=== PATIENT | female | born 1950 | race Caucasian/White ===

== ENCOUNTER 2019-03-31 18:36 | Emergency (ER) | payer MEDICARE, MEDICAID ==
[2019-03-31] MEDS ORDERED: oxyCODONE/Acetamin 5/325 MG* TAB PO ONE (19:29)
[2019-03-31] MEDS ORDERED: Acetaminophen TAB* 325 MG PO ONE (19:29)
--- NOTE | 2019-03-31 19:38 | ED ---
Lower Extremity - HPI Summary HPI Summary: Patient is a 68 y/o F w/ Hx of MS who presents to [facility] with complaints of right leg pain. She states that she has had chronic leg pain for the past few years and relates this chronic pain to her MS. Patient reports that she had an exacerbation of her pain three days ago. Pain is reported to radiate from her right hip down her leg to her foot. Patient reported that she has been taking muscle relaxers and ibuprofen without relief in Sx. She denies any recent injuries. She notes that when she has experienced similar previous episodes, her Sx are treated with stronger pain medications. Patient claims that she has an appointment with her PCP in the next two days. She additionally notes that she has had chronic incontinence for the past few years. Pain is reported to be at her left leg intermittently as well. Home medications and allergies are reviewed. - History of Current Complaint Chief Complaint: EDExtremityLower Stated Complaint: RT LEG PAIN PER EMS Time Seen by Provider: 03/31/19 19:18 Hx Obtained From: Patient Mechanism Of Injury: Other - no EDVAN reported Onset of Pain: Days, Prior to Arrival Onset/Duration: Still Present Pain Intensity: 3 Pain Scale Used: 0-10 Numeric Timing: Constant, Intermittent - at left leg, Lasting Days Location: Is Discrete @ - right leg Associated Signs And Symptoms: Positive: Negative - Allergies/Home Medications Allergies/Adverse Reactions: Allergies Allergy/AdvReac Type Severity Reaction Status Date / Time latex Allergy Rash Verified 03/31/19 18:45 nickel Allergy Rash Verified 03/31/19 18:45 Sulfa (Sulfonamide Allergy Hives Verified 03/31/19 18:45 Antibiotics) ENVIRONMENTAL Allergy Sneezing Uncoded 02/23/19 15:47 Home Medications: Home Medications Escitalopram * [Lexapro *] 20 mg PO DAILY 03/31/19 [History Confirmed 03/31/19] Teriflunomide (NF) [Aubagio (NF)] 14 mg PO DAILY 03/31/19 [History Confirmed ] amLODIPine TAB* [Norvasc 5 mg TAB*] 5 mg PO DAILY 03/31/19 [History Confirmed ] tiZANidine TAB* [Zanaflex TAB*] 2 mg PO TID 03/31/19 [History Confirmed 03/31/19 ] PMH/Surg Hx/FS Hx/Imm Hx Endocrine/Hematology History: Denies: Hx Diabetes Cardiovascular History: Denies: Hx Pacemaker/ICD History: Denies: Hx Renal Disease Sensory History: Denies: Hx Hearing Aid Psychiatric History: Denies: Hx Panic Disorder - Surgical History Surgery Procedure, Year, and Place: HYSTERECTOMY. 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 LASER SURGERY FOR CATARACTS Infectious Disease History: No Infectious Disease History: Denies: Traveled Outside the [place] in Last 30 Days - Family History Known Family History: Negative: Seizure Disorder - Social History Alcohol Use: Rare Substance Use Type: Reports: None Smoking Status (MU): Light Every Day Tobacco Smoker Review of Systems Positive: incontinence - chronic Musculoskeletal: Other - positive - worsening of chronic right leg pain, intermittent pain at left leg; negative - discrete injury All Other Systems Reviewed And Are Negative: Yes Physical Exam - Summary Physical Exam Summary: Constitutional: Well-developed, Well-nourished, Alert. (-) Distressed Skin: Atraumatic, Warm, Dry, no breaks, bleeding, or ecchymosis. HENT: Normocephalic; Atraumatic Eyes: Conjunctiva normal Neck: Musculoskeletal ROM normal neck. (-) JVD, (-) Stridor, (-) Tracheal deviation Cardio: Rhythm regular, rate normal, Heart sounds normal; Intact distal pulses; The pedal pulses are 2+ and symmetric. Radial pulses are 2+ and symmetric. Good pulses and good capillary refill. Patient is well perfused. Pulmonary/Chest wall: Effort normal. (-) Respiratory distress, (-) Wheezes, (-) Rales Abd: Soft, (-) tenderness, (-) Distension, (-) Guarding, (-) Rebound Musculoskeletal: (-) Edema (-) deformity to hip (-) bony tenderness (-) calf tenderness; Calves are soft, supple, and symmetrical. Patient feels discomfort is localized to anterior aspect of the tibia. Neuro: Alert, Oriented x3 Psych: Mood and affect Normal Triage Information Reviewed: Yes Vital Signs On Initial Exam: Initial Vitals Pulse Pulse Ox 85 95 03/31/19 18:40 03/31/19 18:40 Vital Signs Reviewed: Yes Procedures - Sedation Patient Received Moderate/Deep Sedation with Procedure: No Diagnostics - Vital Signs Vital Signs Temp Pulse Resp BP Pulse Ox 03/31/19 18:42 99.6 F 80 18 145/90 94 03/31/19 18:41 82 145/90 96 03/31/19 18:40 85 95 - Laboratory Lab Statement: Any lab studies that have been ordered have been reviewed, and results considered in the medical decision making process. Re-Evaluation - Re-Evaluation First Eval Re-Evaluation Time: 21:46 Change: Improved Comment: Sx are improved after medications, patient is discharged to home. Lower Extremity Course/Dx - Course Course Of Treatment: Patient is a 68 y/o F w/ Hx of MS who presents to [facility] with complaints of right leg pain. She states that she has had chronic leg pain for the past few years and relates this chronic pain to her MS. Patient reports that she had an exacerbation of her pain three days ago. Pain is reported to radiate from her right hip down her leg to her foot. She denies any recent injuries. She notes that when she has experienced similar previous episodes, her Sx are treated with strong pain medications. Skin: Atraumatic, Warm, Dry, no breaks, bleeding, or ecchymosis. Musculoskeletal: (-) Edema (-) deformity to hip (-) bony tenderness (-) calf tenderness; Calves are soft, supple, and symmetrical. Patient feels discomfort is localized to anterior aspect of the tibia. Good pulses and good capillary refill. Patient is well perfused. During ED course, patient received 2 tabs of 5/325 Percocet and 325 mg PO Tylenol. Patient had improvement of pain after medications, she was discharged to home. - Diagnoses Provider Diagnoses: Chronic pain of right lower extremity Discharge ED - Sign-Out/Discharge Documenting (check all that apply): Patient Departure - discharge - Discharge Plan Condition: Stable Disposition: HOME Patient Education Materials: Arthralgia (ED) Referrals: Amira Juarez MD [Primary Care Provider] - - Billing Disposition and Condition Condition: STABLE Disposition: Home - Attestation Statements Document Initiated by Ashanti: Yes Documenting Scribe: EMILY ROQUE Provider For Whom Ashanti is Documenting (Include Credential): GERARD ART MD Scribe Attestation: EMILY Barrow scribed for GERARD ART MD on 04/01/19 at 0716. Scribe Documentation Reviewed: Yes Provider Attestation: The documentation as recorded by the EMILY gomez accurately reflects the service I personally performed and the decisions made by me, GERARD ART MD Status of Scribe Document: Viewed
--- OUTSIDE RECORDS SUMMARY | 2019-03-31 19:50 | XMS REPORT | Continuity of Care Document ---
:1950 External Reference #:[id number] Author Name Chauncey Bhandari M.D. 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 Onset: 02/19/2019 Social History Type Date Description Comments Sex Unknown ETOH Use Rarely consumes alcohol Tobacco Use Start: Unknown Light tobacco smoker (10 or fewer cigarettes/day) Recreational Drug Use Denies Drug Use Smoking Status Reviewed: 02/19/19 Light tobacco smoker (10 or fewer cigarettes/day) Exercise Type/Frequency Exercises rarely Allergies, Adverse Reactions, Alerts Active Allergies Reaction Severity Comments Date Sulfa 02/19/2019 Nickel 02/19/2019 Medications Active Medications SIG Qnty Indications Ordering Provider Date Tizanidine HCL Take 1 by mouth 90tabs G35 Chauncey Bhandari, 02/19/2019 2mg every 8 hours M.D. Tablets as needed Aubagio one tab po Unknown 14mg Tablets daily Cephalexin 1 tab po 3x Unknown 500mg daily Capsules Escitalopram Oxalate 1 by mouth Unknown every day 20mg Tablets Rosuvastatin Calcium take 1 tablet Unknown by mouth every 10mg Tablets evening Amlodipine Besylate 1 by mouth Unknown 5mg every day Tablets Ibu as needed Unknown 800mg Tablets Immunizations Description No Information Available Vital Signs Date Vital Result Comment 02/19/2019 1:54pm Height 65 inches 5'5" Weight 169.00 lb Heart Rate 82 /min BP Systolic 130 mmHg BP Diastolic 98 mmHg BMI (Body Mass Index) 28.1 kg/m2 Results Description No Information Available Procedures Description No Information Available Medical Devices Description No Information Available Encounters Type Date Location Provider Dx Diagnosis Office Visit 02/19/2019 [facility] Chauncey Bhandari G35 Multiple 2:00p [facility] [place] sclerosis Assessments Date Code Description Provider 02/19/2019 G35 Multiple sclerosis Chauncey Bhandari M.D. Plan of Treatment Future Appointment(s):04/02/2019 10:30 am - Fito Morris N.P. at [facility]02/19[facility]2019 - Chauncey Bhandari M.D.G35 Multiple sclerosisNew Medication:Tizanidine HCL 2 mg - Take 1 by mouth every 8 hours as neededNew Xrays:MRI Cervical Spine W/Wo, Ordered: 02/19/19MRI Brain W/Wo, Ordered: 02/19/19Follow up:Follow up in 6 weeks with Tera SANCHEZ for MRI films and reports from [facility] Functional Status Description No Information Available Mental Status Description No Information Available Referrals Description No Information Available
[2019-03-31 22:19] VITALS: BP 135/68
== END 2019-03-31 21:51 | disposition home or self-care (01) ==
LOC: ED 18:36
DX: M79.604 Pain in right leg (principal); G89.29 Other chronic pain; F17.200 Nicotine dependence, unspecified, uncomplicated; Z90.710 Acquired absence of both cervix and uterus; Z79.899 Other long term (current) drug therapy; Z88.2 Allergy status to sulfonamides; Z91.040 Latex allergy status
CPT/HCPCS: 99282; A9270-GY

== ENCOUNTER 2019-08-09 10:29 | Observation (INO) | payer MEDICARE, MEDICAID ==
--- NOTE | 2019-08-09 10:47 | ED ---
HPI Chest Pain - HPI Summary HPI Summary: Patient is a 68 y/o F presenting to the ED via EMS for a chief complaint of midsternal chest pain that began 4 days ago and worsened on 08/09/19. The chest pain is rated as an 8/10 in severity at initial onset, but has since resolved after receiving aspirin and NTG from EMS. The chest pain is described as a pressure sensation. The chest pain worsens with movement and eating. The chest pain improves with rest. She took TUMS and apple cider vinegar without relief of her chest pain. The patient initially believed she had indigestion. On the morning of 08/09/19, patient had an episode of nausea and vomiting that has since resolved. Patient denies diaphoresis, lightheadedness, or shortness of breath. PMHx is significant for HTN and multiple sclerosis for which she follows up with Dr. Chauncey Bhandari. She last saw Dr. Chauncey Bhandari one week ago for a steroid infusion. No significant FMHx is reported. Patient notes a history of taking medications for HLD, but none at the present time. She takes tizanidine, Aubagio, and Lexapro. She is a former smoker. - History of Current Complaint Time Seen by Provider: 08/09/19 10:34 Hx Obtained From: Patient Onset/Duration: Atraumatic, Still Present Timing: Intermittent Initial Severity: Severe Current Severity: None Pain Intensity: 8 Pain Scale Used: 0-10 Numeric Chest Pain Location: Mid Sternal Chest Pain Radiates: No Character: Pressure/Squeezing Aggravating Factor(s): Movement, Other: - Eating Alleviating Factor(s): Rest, NTG 123, OTC Meds - Aspirin Associated Signs and Symptoms: Positive: Chest Pain - Midsternal, Nausea - Resolved, Vomiting - Resolved. Negative: Shortness of Breath, Lightheadedness, Diaphoresis - Allergy/Home Medications Allergies/Adverse Reactions: Allergies Allergy/AdvReac Type Severity Reaction Status Date / Time acetaminophen [From Tylenol] Allergy GI Upset Verified 04/15/19 10:33 latex Allergy Rash Verified 04/15/19 10:33 nickel Allergy Rash Verified 04/15/19 10:33 Sulfa (Sulfonamide Allergy Hives Verified 04/15/19 10:33 Antibiotics) ENVIRONMENTAL Allergy Sneezing Uncoded 11/14/19 10:33 Home Medications: Home Medications Escitalopram * [Lexapro *] 20 mg PO DAILY 03/31/19 [History Confirmed 08/09/19] Teriflunomide (NF) [Aubagio (NF)] 14 mg PO DAILY 03/31/19 [History Confirmed 02/19] amLODIPine TAB* [Norvasc 5 mg TAB*] 5 mg PO DAILY 03/31/19 [History Confirmed ] tiZANidine TAB* [Zanaflex TAB*] 6 mg PO TID PRN 03/31/19 [History Confirmed 02/19] Diazepam TAB(*) [Valium TAB(*)] 5 mg PO ONCE MDD 2 tabs 08/09/19 [History Confirmed 08/09/19] Ibuprofen TAB* [Motrin TAB* 800 MG] 800 mg PO .Q6-8 HRS PRN 08/09/19 [History Confirmed 08/09/19] Oxycodone HCl [Roxicodone] 5 mg PO Q4H PRN 08/09/19 [History Confirmed 08/09/19] Rosuvastatin (NF) [Crestor (NF)] 10 mg PO DAILY 08/09/19 [History Confirmed 02/19] PMH/Surg Hx/FS Hx/Imm Hx Previously Healthy: Yes Endocrine/Hematology History: Denies: Hx Diabetes Cardiovascular History: Reports: Hx Hypercholesterolemia - No meds, Hx Hypertension Denies: Hx Pacemaker/ICD History: Denies: Hx Renal Disease Sensory History: Denies: Hx Legally Blind, Hx Deafness, Hx Hearing Aid Opthamlomology History: Denies: Hx Legally Blind EENT History: Denies: Hx Deafness Neurological History: Reports: Other Neuro Impairments/Disorders - Multiple sclerosis Psychiatric History: Denies: Hx Panic Disorder - Surgical History Surgical History: Yes Surgery Procedure, Year, and Place: HYSTERECTOMY. 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 LASER SURGERY FOR CATARACTS Infectious Disease History: No Infectious Disease History: Denies: Traveled Outside the US in Last 30 Days - Family History Known Family History: Negative: Seizure Disorder - Social History Occupation: Retired Alcohol Use: None Hx Substance Use: No Substance Use Type: Reports: None Hx Tobacco Use: Yes Smoking Status (MU): Former Smoker Type: Cigarettes Have You Smoked in the Last Year: Yes Review of Systems Negative: Skin Diaphoresis Positive: Chest Pain - Midsternal Negative: Shortness Of Breath Positive: Vomiting - Resolved, Nausea - Resolved Neurological/Mental Status: Other - Negative lightheadedness All Other Systems Reviewed And Are Negative: Yes Physical Exam - Summary Physical Exam Summary: Appearance: The patient is well-nourished in no acute distress and in no acute pain. Skin: The skin is warm and dry, and skin color reflects adequate perfusion. HEENT: The head is normocephalic and atraumatic. The pupils are equal and reactive. The conjunctivae are clear and without drainage. Nares are patent and without drainage. Mouth reveals moist mucous membranes, and the throat is without erythema and exudate. The external ears are intact. The ear canals are patent and without drainage. The tympanic membranes are intact. Neck: The neck is supple with full range of motion and non-tender. There are no carotid bruits. There is no neck vein distension. Respiratory: Chest is non-tender. Lungs are clear to auscultation and breath sounds are symmetrical and equal. Cardiovascular: Heart is regular rate and rhythm. There is no murmur or rub auscultated. There is no peripheral edema and pulses are symmetrical and equal. Abdomen: The abdomen is soft and non-tender. There are normal bowel sounds heard in all four quadrants and there is no organomegaly palpated. Musculoskeletal: There is no back tenderness noted. Extremities are non-tender with full range of motion. There is good capillary refill. There is no peripheral edema or calf tenderness elicited. Neurological: Patient is alert and oriented to person, place and time. The patient has symmetrical motor strength in all four extremities. Cranial nerves are grossly intact. Deep tendon reflexes are symmetrical and equal in all four extremities. Psychiatric: The patient has an appropriate affect and does not exhibit any anxiety or depression. Triage Information Reviewed: Yes Vital Signs Reviewed: Yes Procedures - Sedation Patient Received Moderate/Deep Sedation with Procedure: No Diagnostics - Laboratory Result Diagrams: 08/09/19 10:43 08/09/19 10:43 Lab Statement: Any lab studies that have been ordered have been reviewed, and results considered in the medical decision making process. - EKG 10:32 Cardiac Rate: NL - 90 BPM EKG Rhythm: Sinus Rhythm ST Segment: Normal Ectopy: None Summary of EKG Findings: EKG at 10:32 shows normal sinus rhythm with 90 BPM, normal ST, no ectopy, no STEMI. Reviewed and interpreted by Dr. Fontana. Chest Pain Course/Dx - Course Course Of Treatment: Ms. Carpenter presented with an atypical chest pain. She does not know her family history as she is estranged and her heart score was a 4. Her chest pain had resolved with EMS treatment but began to return in the emergency department. Nitroglycerin completely resolved it a second time and I spoke with the hospitalist about in-house evaluation. - Diagnoses Provider Diagnoses: Chest pain - Provider Notifications Discussed Care Of Patient With: Janet Day - At 13:17, Dr. Janet Day reviewed the patients case and agrees to admit the patient to [facility] with a diagnosis of chest pain. Time Discussed With Above Provider: 13:17 Instructed by Provider To: Admit As Inpatient Discharge ED - Sign-Out/Discharge Documenting (check all that apply): Patient Departure - Admit - Discharge Plan Condition: Stable Disposition: ADMITTED TO [facility] - Billing Disposition and Condition Condition: STABLE Disposition: Admitted to [facility] - Attestation Statements Document Initiated by Scribe: Yes Documenting Scribe: Nidia Dias Provider For Whom Scribe is Documenting (Include Credential): Zbigniew Fontana MD Scribe Attestation: I, Nidia Dias, scribed for Zbigniew Fontana MD on 08/09/19 at 1759. Scribe Documentation Reviewed: Yes Provider Attestation: The documentation as recorded by the Nidia gomez accurately reflects the service I personally performed and the decisions made by me, Zbigniew Fontana MD Status of Scribe Document: Viewed
[2019-08-09 10:55] LABS: ABS Basophils 0.1 10^3/ul (0-0.2); ABS Eosinophils 0.1 10^3/ul (0-0.6); ABS Lymphocytes 1.3 10^3/ul (1.0-4.8); ABS Monocytes 0.8 10^3/ul (0-0.8); ABS Neutrophils 7.4 10^3/ul (1.5-7.7); Eosinophil % 0.6 %; Hematocrit 38 % (35-47); Hemoglobin 13.1 g/dL (12.0-16.0); Lymphocyte % 13.1 %; Mean Corpuscular HGB Conc 35 g/dL (31-36); Mean Corpuscular Hemoglobin 32 pg (27-31); Mean Corpuscular Volume 92 fL (80-97); Mean Platelet Volume 7.8 fL (7.4-10.4); Platelet Count 265 10^3/uL (150-450); Red Blood Count 4.11 10^6 /uL (3.70-4.87); Red Cell Distribution Width 14 % (10-15); White Blood Count 9.6 10^3/uL (3.5-10.8)
[2019-08-09 11:09] LABS: INR 1.02 (0.82-1.09)
[2019-08-09 11:16] LABS: Albumin 4.1 g/dL (3.2-5.2); Albumin/Globulin Ratio 1.4 (1-3); BUN/Creatinine Ratio 22.8 (8-20); Calcium 10.1 mg/dL (8.6-10.3); EGFR African American 88.1 (>60); EGFR Non-African American 72.8 (>60); Potassium 4.2 mmol/L (3.5-5.0); Total Bilirubin 0.4 mg/dL (0.2-1.0); Total Protein 7.1 g/dL (6.4-8.9)
--- OUTSIDE RECORDS SUMMARY | 2019-08-09 11:29 | XMS REPORT | Continuity of Care Document ---
:1950 External Reference #:[id number] Author Name Chauncey Bhandari M.D. 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 Onset: nervous system Multiple sclerosis Chauncey Bhandari M.D. Onset: 02/19/2019 Social History Type Date Description Comments Sex Unknown ETOH Use Rarely consumes alcohol Tobacco Use Start: Unknown Light tobacco smoker (10 or fewer cigarettes/day) Recreational Drug Use Denies Drug Use Tobacco Use Start: Unknown End: Patient is a former quit 05/17/19 Unknown smoker Smoking Status Reviewed: 07/15/19 Patient is a former quit 05/17/19 smoker Exercise Type/Frequency Exercises rarely Allergies, Adverse Reactions, Alerts Active Allergies Reaction Severity Comments Date Sulfa 02/19/2019 Nickel 02/19/2019 Medications Active Medications SIG Qnty Indications Ordering Provider Date Tizanidine HCL 1 tablet three 90caps G35 Fito Morris, 04/02/2019 6mg times a day as N.P. Capsules needed for spasms Diazepam take one tab 30 2tabs G35 Fito Morris, 04/02/2019 5mg Tablets minutes prior to N.P. mri do not drive after taking may repeat times one Aubagio one tab po daily Unknown 14mg Tablets Cephalexin 1 tab po 3x Unknown 500mg Capsules daily Escitalopram Oxalate 1 by mouth every Unknown 20mg day Tablets Amlodipine Besylate 1 by mouth every Unknown 5mg day Tablets Ibu as needed Unknown 800mg Tablets Oxycodone HCL as needed Claudia Duong, 5mg Tablets N.P. History Medications Tizanidine HCL Take 1 by mouth 90tabs G35 Chauncey Bhandari, 02/19/2019 - 2mg every 8 hours M.D. 04/02/2019 Tablets as needed Immunizations Description No Information Available Vital Signs Date Vital Result Comment 07/15/2019 9:50am Height 65 inches 5'5" Weight 167.00 lb Heart Rate 64 /min BP Systolic 100 mmHg BP Diastolic 78 mmHg BMI (Body Mass Index) 27.8 kg/m2 05/31/2019 9:38am Height 65 inches 5'5" Weight 168.00 lb Heart Rate 70 /min BP Systolic 130 mmHg BP Diastolic 82 mmHg BMI (Body Mass Index) 28.0 kg/m2 Results Test Acquired Date Facility Test Result H/L Range Note CBC Auto 02/23/2019 [facility] White Blood 5.9 10^3/uL Normal 3.5-10.[address] [place] [address] [phone] Red Blood Count 4.72 10^6/uL Normal 3.70-4.87 Hemoglobin 15.0 g/dL Normal 12.0-16.0 Hematocrit 44 % Normal 35-47 Mean Corpuscular Volume 93 fL Normal 80-97 Mean Corpuscular Hemoglobin 32 pg High 27-31 Mean Corpuscular HGB Conc 34 g/dL Normal 31-36 Red Cell Distribution Width 15 % Normal 10-15 Platelet Count 257 10^3/uL Normal 150-450 Mean Platelet Volume 9.1 fL Normal 7.4-10.4 Abs Neutrophils 3.9 10^3/uL Normal 1.5-7.7 Abs Lymphocytes 1.3 10^3/uL Normal 1.0-4.8 Abs Monocytes 0.5 10^3/uL Normal 0-0.8 Abs Eosinophils 0.1 10^3/uL Normal 0-0.6 Abs Basophils 0.0 10^3/uL Normal 0-0.2 Abs Nucleated RBC 0.0 10^3/uL Granulocyte % 65.6 % Lymphocyte % 22.8 % Monocyte % 9.1 % Eosinophil % 2.0 % Basophil % 0.5 % Nucleated Red Blood Cells % 0.1 Comp Metabolic 02/23/2019 [facility] Sodium 139 mmol/L Normal 135-[address] [place] [address] [phone] Potassium 4.4 mmol/L Normal 3.5-5.0 Chloride 105 mmol/L Normal 101-111 Co2 Carbon Dioxide 26 mmol/L Normal 22-32 Anion Gap 8 mmol/L Normal 2-11 Glucose 106 mg/dL High 70-100 Blood Urea Nitrogen 18 mg/dL Normal 6-24 Creatinine 0.80 mg/dL Normal 0.51-0.95 BUN/Creatinine Ratio 22.5 High 8-20 Calcium 9.5 mg/dL Normal 8.6-10.3 Total Protein 6.9 g/dL Normal 6.4-8.9 Albumin 4.2 g/dL Normal 3.2-5.2 Globulin 2.7 g/dL Normal 2-4 Albumin/Globulin Ratio 1.6 Normal 1-3 Total Bilirubin 0.50 mg/dL Normal 0.2-1.0 Alkaline Phosphatase 78 U/L Normal 34-104 Alt 15 U/L Normal 7-52 Ast 14 U/L Normal 13-39 Egfr Non- 71.8 >60 Egfr 86.8 >60 2 1 [id number] 2 Because ethnic data is not always readily available, this report includes an eGFR for both -Americans and non- Americans. The National Kidney Disease Education Program (NKDEP) does not endorse the use of the MDRD equation for patients that are not between the ages of 18 and 70, are , have extremes of body size, muscle mass, or nutritional status, or are non- or non-. According to the National Kidney Foundation, irrespective of diagnosis, the stage of the disease is based on the level of kidney function: Stage Description GFR(mL/min/1.73 m(2)) 1 Kidney damage with normal or decreased GFR 90 2 Kidney damage with mild decrease in GFR 60-89 3 Moderate decrease in GFR 30-59 4 Severe decrease in GFR 15-29 5 Kidney failure <15 (or dialysis) Procedures Description No Information Available Medical Devices Description No Information Available Encounters Type Date Location Provider Dx Diagnosis Office Visit 05/31/2019 [facility] Quang Trevino Multiple 9:45a [place] sclerosis Office Visit 04/02/2019 [facility] Fitomendel Morris, G35 Multiple 10:30a [facility] sclerosis R94.02 Abnormal brain scan Office Visit 02/19/2019 2:00p [facility] Belinda Kirkland Multiple [facility] [place] sclerosis Assessments Date Code Description Provider 07/15/2019 [facility] Multiple sclerosis Chauncey Bhandari M.D. 07/15/2019 R94.02 Abnormal brain scan Chauncey Bhandari M.D. 05/31/2019 [facility] Multiple sclerosis Quang Johnson M.D. 04/02/2019 [facility] Multiple sclerosis Jing Cook.PCarey 04/02/2019 R94.02 Abnormal brain scan Alva CookPCarey 02/19/2019 [facility] Multiple sclerosis Chauncey Bhandari M.D. Plan of Treatment Future Appointment(s):11/26/2019 2:45 pm - Chauncey Bhandari M.D. at [facility]07/15/2019 - Chauncey Bhandari M.D.G3Christin Multiple sclerosisRecommendations:Call me 2-3 days after your labs are done. If the labs are negative, we will arrange a steroid infusion the next week. Talk to Dr. Juarez about Vitamin D [id number] Abnormal brain scan Functional Status Description No Information Available Mental Status Description No Information Available Referrals Refer to Dr Reason for Referral Status Appt Date Quang Johnson MD Sent [address] [place] [id number] [phone]
[2019-08-09] MEDS ORDERED: Nitroglycerin TAB 0.4 MG* 0.4 MG TAB SL ONE (12:19)
[2019-08-09] MEDS: tiZANidine TAB* 2 MG PO PRN (16:40)
[2019-08-09] MEDS: Enoxaparin(*) 40 MG/0.4 ML SYR SUBCUT SCH (16:40)
--- NOTE | 2019-08-09 18:08 | HP ---
CC: Allyssa Esparza * HISTORY AND PHYSICAL: DATE OF ADMISSION: 08/09/19 PROVIDER: Komal Barbosa NP PRIMARY CARE PROVIDER: Dr. Juarez. ATTENDING PHYSICIAN WHILE IN THE HOSPITAL: Dr. Janet Day * (dictated by Komal Barbosa NP). CHIEF COMPLAINT: Chest pain. HISTORY OF PRESENT ILLNESS: Ms. Carpenter is a 68-year-old female with a past medical history significant for MS and hypertension, who presented to the emergency room with complaints of chest pain. The patient reports that she has had constant midsternal chest pain for the past 4 days. The patient reports that she attempted to take Tums several times over the past 4 days with no relief. The patient reports that she also tried apple cider vinegar which after taking she vomited. The patient describes the pain as a pressure in the center of her chest, initially rated at a 10 that radiates up to her neck with a burning sensation. She does report that it is slightly worse with a deep breath. She does report prior to calling EMS nothing was making it better. Due to her constant pain, EMS was called. She was given aspirin and nitro in the ambulance with resolution of her pain. She denies any associated diaphoresis, lightheadedness, or shortness of breath. She denies any palpitations. While in the emergency room, the patient had routine lab work drawn. Her initial troponin was 0.00. Due to the patient's complaint of chest pain, Hospital Medicine was asked to see and evaluate her for admission. PAST MEDICAL HISTORY: Significant for MS and hypertension. PAST SURGICAL HISTORY: Hysterectomy, cataract surgery. HOME MEDICATIONS: Include: 1. Zanaflex 6 mg t.i.d. 2. Norvasc 5 mg p.o. daily. 3. Aubagio 14 mg p.o. daily. 4. Lexapro 20 mg p.o. daily. 5. Oxycodone 5 mg p.o. q.4 hours as needed for pain, takes rarely. 6. Ibuprofen 800 mg every 6 to 8 hours as needed. ALLERGIES: To LATEX, NICKEL, SULFA, and TYLENOL. FAMILY HISTORY: Father with a history of an NC in his 50s. No reported history of diabetes or cancer. The patient reports that she has been estranged from her family for the past 15 years. SOCIAL HISTORY: She denies any tobacco, alcohol, or illicit drug use. She currently resides at [facility]. She is a DNR/DNI. Surrogate decision maker in the event she is unable to make her own decisions is [place]. REVIEW OF SYSTEMS: She denies any fever, chills, unintended weight loss. She does report chest pain rated as pressure in the center of her chest that radiates as a burning sensation to her neck. No edema. No cough, hemoptysis, shortness of breath. No nausea, vomiting, diarrhea or abdominal pain, hematuria or dysuria. Denies any focal weakness or sensory loss. Denies any visual complaints, dysphagia, arthralgias, myalgias, rashes, lesions, open sores , psychosis, or anxiety. PHYSICAL EXAMINATION GENERAL: At this time, Ms. Carpenter is a 68-year-old female. She is alert and oriented, resting on the stretcher in the emergency room. She is in no acute distress. VITAL SIGNS: Blood pressure 123/75, heart rate is 77, respirations 22, O2 saturation is 93%, temperature was 99.0. HEENT: Head is atraumatic, normocephalic. Eyes: EOMs are intact. Sclerae anicteric and not pale. Oral mucosa is moist. NECK: Supple. LUNGS: Clear to auscultation bilaterally. No wheezes, rales, or rhonchi. CARDIAC: S1, S2. Regular rate and rhythm. No murmurs, rubs, or gallops. ABDOMEN: Soft and nontender. Bowel sounds are present x4. EXTREMITIES: She has limited range of motion to her lower extremities and right arm due to MS that is chronic. Pedal pulses are +2 bilaterally. NEUROLOGIC: She is awake, alert, oriented x3. Speech is clear. Thought process is intact. SKIN: Intact. DIAGNOSTIC STUDIES/LAB DATA: WBCs are 9.6, RBCs 4.11, hemoglobin 13.1, hematocrit 38, platelet count 265. INR is 1.02. Sodium 133, potassium 4.2, chloride 100, carbon dioxide was 26, anion gap was 7, BUN was 18, creatinine 0.79, glucose was 102, calcium 10.1. Total bilirubin 0.40, ASTs were 13, ALTs were 23, alkaline phosphatase was 67. Troponin 0.00 x2. She had an electrocardiogram, which showed sinus rhythm at a rate of 90. No ST or T-wave changes. ASSESSMENT AND PLAN: Ms. Carpenter is a 68-year-old female with a past medical history significant for multiple sclerosis and hypertension, who presented to the emergency room with complaints of chest pain. She will be admitted under observation for: 1. Chest pain. The patient does complain of midsternal chest pressure that radiates to her neck with a burning sensation. We will bring her in for risk stratification for acute coronary syndrome. We will continue to trend her troponins. She will have a nuclear chemical stress test tomorrow. The patient did receive aspirin 324 mg. She also had nitro with relief of her pain. The patient's HEART score is a 4, giving her a 12.2% to 16% risk of major adverse cardiac event. We will monitor on telemetry overnight. 2. Hypertension. She should continue on amlodipine as previously prescribed. 3. Multiple sclerosis. The patient should continue Zanaflex and Aubagio as previously prescribed. 4. Depression. She should continue on Lexapro as previously prescribed. 5. FEN: She can have a heart-healthy, no caffeine diet. 6. Code status: She is a DNR. MOLST form was completed and placed on the chart. TIME SPENT: Time spent on this admission was 60 minutes, greater than half that time was spent at the bedside reviewing events leading thus far to her hospitalization, performing physical exam, and reviewing my plan of care. I have discussed this with my attending, Dr. Janet Day; she is in agreement with my plan. KOMAL BARBOSA, STAFF TOXICOLOGIST [id number]/[facility] #: [id number] [facility]
[2019-08-09] MEDS: Al Hydrox/Mg Hydrox/Simet LIQ* 30 ML UDC PO PRN (19:23)
[2019-08-10] MEDS: tiZANidine TAB* 2 MG PO PRN (02:18)
[2019-08-10] MEDS ORDERED: Morphine INJ* 2 MG/ML 1 ML SYRINGE (TWO MG - NEW SYRINGE VERSION) IV ONE (04:04)
[2019-08-10 07:01] LABS: BUN/Creatinine Ratio 27.8 (8-20); Calcium 9.2 mg/dL (8.6-10.3); EGFR African American 88.1 (>60); EGFR Non-African American 72.8 (>60)
[2019-08-10] MEDS ORDERED: amLODIPine TAB* 5 MG PO SCH ×2 (09:00→13:30)
[2019-08-10] MEDS ORDERED: TERIFLUNOMIDE 7 MG PO SCH (09:00)
[2019-08-10] MEDS ORDERED: Escitalopram * 20 MG TABLET PO SCH (09:00)
[2019-08-10] MEDS ORDERED: Regadenoson* 0.4 MG/5 ML SYRINGE ONE (10:19)
[2019-08-10] MEDS ORDERED: Aminophylline IV* 25 MG/ML 10 ML VIAL ONE (10:19)
[2019-08-10] MEDS: Al Hydrox/Mg Hydrox/Simet LIQ* 30 ML UDC PO PRN (12:43)
[2019-08-10] MEDS ORDERED: Pantoprazole TAB * 40 MG TAB PO SCH (14:00)
[2019-08-10] MEDS: Enoxaparin(*) 40 MG/0.4 ML SYR SUBCUT SCH (15:33)
[2019-08-10 15:48] VITALS: BP 115/64
--- NOTE | 2019-08-12 21:15 | DS ---
DISCHARGE SUMMARY: DATE OF ADMISSION: 08/09/19 DATE OF DISCHARGE: 08/10/19 PROVIDER: Rosalia Barbosa NP PRIMARY CARE PROVIDER: Dr. Juarez. ATTENDING PHYSICIAN WHILE IN THE HOSPITAL: Dr. Janet Day * (dictated by Rosalia Barbosa NP). PRIMARY DIAGNOSES: 1. Chest pain. 2. Right lung nodule. SECONDARY DIAGNOSES: 1. Multiple sclerosis. 2. Hypertension. STUDIES COMPLETED WHILE IN THE HOSPITAL: She had a chest x-ray on 08/09/19, radiologist's impression: A 1.8 cm nodule densely in the right middle lobe. Recommended CT. She had a nuclear stress test, which was low risk. There is a fixed photopenia of the apex suggestion of a previous infarct. No definite reversibility to suggest ischemia - I did discuss this with Dr. Rivera who reports that her nuclear stress test is within normal limits. She had a CT of the chest, radiologist's impression: A 1.6 cm nodule in the right middle lobe corresponding with radiographic findings with small nodules in the right upper lobe measuring up to 0.7 cm. The recommendations for followup and management of instantly detected pulmonary nodules greater than 8 mm in size in a patient without history of malignancy, included a followup CT in 3 months, PET CT, and/or biopsy. DISCHARGE MEDICATIONS: New home medications: 1. Pantoprazole 40 mg p.o. daily. 2. Maalox 30 mL every 4 hours as needed for indigestion. Continued home medications: 1. Tizanidine 6 mg p.o. t.i.d. 2. Crestor 10 mg p.o. daily. 3. Amlodipine 5 mg p.o. daily. 4. Aubagio 14 mg p.o. daily. 5. Lexapro 20 mg p.o. daily. 6. Roxicodone 5 mg every 4 hours as needed for pain. 7. Ibuprofen 400 mg every 6 to 8 hours as needed. 8. Diazepam 5 mg as needed. HISTORY OF PRESENT ILLNESS AND HOSPITAL COURSE: Ms. Carpenter is a 68-year-old female with a past medical history significant for MS and hypertension, who presented to the emergency room with complaints of chest pain. She reports that the pain as midsternal over the past 4 days that has been consistent. She reports she attempted to use Tums several times over the past 4 days with no relief. The patient tried apple cider vinegar, which she reports after taking she vomited. The patient describes her chest pain as a pressure in the center of her chest, rated at a 10 and radiated up into her neck with a burning sensation in her throat. She does report the pain was worse with deep breath. The patient was brought to the emergency room by EMS. She reports that she was given aspirin and nitro in the ambulance with resolution of her pain. Due to those findings, Hospital Medicine was asked to see and evaluate her for admission. During this hospitalization, the patient had serial troponins that were all 0.00 throughout the hospitalization. She underwent a nuclear stress test that was deemed as low risk. Results were reviewed by Dr. Rivera due to a fixed defect at the apex, which she reports is her stress being within normal limits. The patient did have a couple of episodes of chest pressure with burning radiating into her neck. After eating and drinking hot tea, the patient was given Maalox with relief of her symptoms. At this time, I suspect her chest pain could be related to peptic ulcer disease or acid reflux. I have started her on pantoprazole to help alleviate the symptoms. She should follow up with her primary care provider in 4 to 7 days for further recommendations on management of her upper epigastric and chest pain, likely noncardiac. REVIEW OF SYSTEMS: The patient denies any fever or chills. She currently denies any chest pain or shortness of breath. She denies any nausea, vomiting, abdominal pain. She denies any urinary frequency, urgency, or pain with urination. A 11- point review of systems was completed. All pertinent positives have been mentioned. Of note, the patient did report overnight she had a couple of episodes of, after eating, epigastric burning radiating into her throat that was relieved with Maalox. PHYSICAL EXAMINATION: General: At this time, Ms. Crapenter is alert and oriented, resting in her hospital bed. She is in no acute distress. Vital Signs: Blood pressure 115/64, heart rate was 91, respirations 16, O2 saturation 92% on room air, temperature was 99.7. HEENT: Head is atraumatic, normocephalic. Eyes: EOMs are intact. Sclerae anicteric and not pale. Oral mucosa is moist. Neck is supple. Lungs are clear to auscultation bilaterally. No wheezes, rales, or rhonchi. Cardiac: S1, S2. Regular rate and rhythm. No murmurs, rubs, or gallops. Abdomen is soft and nontender. Bowel sounds are present x4. Extremities: She does have limited range of motion to her lower extremities. Her right upper arm has limited range of motion due to her MS but is chronic. She does have full range of motion to her left upper extremity. Neurologic: She is awake, alert, oriented x3. Speech is clear and thought process is intact. Skin is intact. DISCHARGE PLAN: At this time, Ms. Carpenter is stable for discharge back to [facility]. 1. Chest pain. The patient was brought in to rule out cardiac involvement of her chest pain. She had a chemical nuclear stress test that was read as low risk with a fixed perfusion defect at the apex. Results were reviewed with Dr. Rivera who has reviewed imaging and reported this test to be within normal limits. The patient did have an exacerbation of her chest pain with burning, radiating up into her neck after meals and drinking hot tea. The patient was given Maalox with improvement of her symptoms. At this time, I suspect that her upper epigastric pain could be related to peptic ulcer disease or acid reflux. I have started her on pantoprazole. She should have further evaluation of this noncardiac chest pain as an outpatient. Should the patient develop any changes in her chest pain and chest pain associated with diaphoresis , nausea, vomiting, syncope, or any other symptoms, she should return to the emergency room for further evaluation. 2. Right lung nodule. The patient incidentally had a right middle lobe lung nodule found on chest x-rays. A CT of her chest was completed again confirming right lung nodule. It is recommended that patient have followup imaging of this right lung nodule and possible PET scan versus biopsy. This will be deferred to her primary care for further management and followup of her right lung nodule. 3. MS. The patient should continue on her medications as previously prescribed. 4. FEN: She can have a regular diet. DISPOSITION ON DISCHARGE: [facility]. CONDITION ON DISCHARGE: Stable. TIME SPENT: Time spent on this discharge was 45 minutes, greater than half that time was spent at the bedside reviewing discharge instructions and plans. I have discussed this with my attending, Dr. Janet Day; she is in agreement with my plan. ROSALIA BARBOSA, ROCK DRILL OPERATOR [id number]/[facility] #: [id number] [facility]IATR[facility] CENTERAsad
== END 2019-08-10 16:57 ==
LOC: ED 10:29 → MEDTELE 14:17
PROVIDERS: ADMIT Internal Medicine; ATTEND Internal Medicine
DX: R07.9 Chest pain, unspecified (principal); G35 Multiple sclerosis; F32.9 Major depressive disorder, single episode, unspecified; I10 Essential (primary) hypertension; Z79.899 Other long term (current) drug therapy; Z88.2 Allergy status to sulfonamides; Z88.8 Allergy status to other drugs, medicaments and biological substances
CPT/HCPCS: 36415; 71046; 71250; 78452; 80048; 80053; 80061; 84484; 85025; 85610; 93005; 93017; 96372; 96374; 99284; A9270-GY; A9502; G0378; J0280; J1650; J2270; J2785

== ENCOUNTER 2022-03-24 08:40 | Inpatient (IN) ==
[2022-03-24 09:34] LABS: Urine Appearance Cloudy; Urine Bilirubin Negative (Negative); Urine Blood Negative (Negative); Urine Color Yellow; Urine Glucose Negative (Negative); Urine Ketones Negative (Negative); Urine Nitrite Positive (Negative); Urine Protein Negative (Negative); Urine Specific Gravity 1.011 (1.002-1.030); Urine Urobilinogen Negative (Negative)
[2022-03-24 09:42] LABS: Activated Partial Thrombo Time 31.1 seconds (26.0-38.0); INR 1.01 (0.89-1.11)
[2022-03-24 09:46] LABS: Hematocrit 28 % (35-47); Hemoglobin 8.7 g/dL (12.0-16.0); Mean Corpuscular HGB Conc 31 g/dL (31-36); Mean Corpuscular Hemoglobin 23 pg (27-31); Mean Corpuscular Volume 73 fL (80-97); Platelet Count 255 10^3/uL (150-450); Red Blood Count 3.78 10^6 /uL (3.70-4.87); Red Cell Distribution Width 18 % (10-15); White Blood Count 4.7 10^3/uL (3.5-10.8)
[2022-03-24 10:01] LABS: ABS Basophils 0.1 10^3/ul (0-0.2); ABS Eosinophils 0.2 10^3/ul (0-0.6); ABS Lymphocytes 0.3 10^3/ul (1.0-4.8); ABS Monocytes 0.5 10^3/ul (0-0.8); ABS Neutrophils 3.6 10^3/ul (1.5-7.7); Eosinophil % 3.7 %; Lymphocyte % 6.8 %
[2022-03-24 10:19] LABS: Urine Bacteria 3+ (Absent); Urine Squamous Epithelial Cell Present (Absent); Urine White Blood Cell 1+(6-10/hpf) (Absent)
[2022-03-24 10:25] LABS: Albumin/Globulin Ratio 1.6 (1-3); C Reactive Protein 7.76 mg/L (<8.01); Globulin 2.5 g/dL (2-4); Potassium 4.1 mmol/L (3.5-5.0); Total Bilirubin 0.3 mg/dL (0.2-1.0); Total Protein 6.5 g/dL (6.4-8.9); eGFR CKD-EPI 70.1 (>60)
[2022-03-24 10:58] LABS: High Sensitivity Troponin 1 Hr < 3 pg/mL (<15)
[2022-03-24] MEDS ORDERED: Albuterol/Ipratropium NEB.SOL (2.5/0.5 MG) 3 ML NEB.SOLN INH ONE (11:02)
[2022-03-24] MEDS ORDERED: Dexamethasone IV 4 MG/ML VIAL 1 ml VIAL IV SLOW PU ONE (11:05)
[2022-03-24] MEDS ORDERED: Ondansetron 4 mg VIAL 2 MG/ML 2 ml VIAL IV PRN (11:39)
[2022-03-24] MEDS ORDERED: Albuterol HFA INHALER 8 gm MDI INH PRN (11:45)
[2022-03-24] MEDS ORDERED: Remdesivir 100 mg Vial 200 MG in NS 0.9% 250 ml 210 ML IV ONE (12:00)
[2022-03-24] MEDS: Enoxaparin 40 MG/0.4 ML SYR SUBCUT SCH (12:38)
[2022-03-24 13:26] LABS: Albumin 3.9 g/dL (3.2-5.2); Albumin/Globulin Ratio 1.5 (1-3); Calcium 8.8 mg/dL (8.6-10.3); Globulin 2.6 g/dL (2-4); Potassium 3.9 mmol/L (3.5-5.0); Total Bilirubin 0.3 mg/dL (0.2-1.0); Total Protein 6.5 g/dL (6.4-8.9); eGFR CKD-EPI 74.1 (>60)
[2022-03-24] MEDS: Al Hydrox/Mg Hydrox/Simet LIQ 30 ML UDC PO PRN (23:37)
[2022-03-25 06:49] LABS: ABS Lymphocytes 0.8 10^3/ul (1.0-4.8); ABS Monocytes 0.4 10^3/ul (0-0.8); Hematocrit 30 % (35-47); Hemoglobin 9.4 g/dL (12.0-16.0); Mean Corpuscular HGB Conc 32 g/dL (31-36); Mean Corpuscular Hemoglobin 24 pg (27-31); Mean Corpuscular Volume 74 fL (80-97); Mean Platelet Volume 7.6 fL (7.4-10.4); Nucleated Red Blood Cells % 0.1; Platelet Count 253 10^3/uL (150-450); Red Blood Count 3.99 10^6 /uL (3.70-4.87); Red Cell Distribution Width 18 % (10-15); White Blood Count 4.2 10^3/uL (3.5-10.8)
[2022-03-25 06:51] LABS: INR 1.02 (0.89-1.11)
[2022-03-25 07:09] LABS: Albumin/Globulin Ratio 1.5 (1-3); Calcium 9.2 mg/dL (8.6-10.3); Globulin 2.6 g/dL (2-4); Potassium 4.6 mmol/L (3.5-5.0); Total Bilirubin 0.2 mg/dL (0.2-1.0); Total Protein 6.6 g/dL (6.4-8.9); eGFR CKD-EPI 65.7 (>60)
[2022-03-25] MEDS: Remdesivir 100 mg Vial 100 MG in NS 0.9% 250 ml 230 ML IV SCH (09:42)
[2022-03-25] MEDS: TERIFLUNOMIDE 14 MG PO SCH (09:47)
[2022-03-25] MEDS: Mirabegron 50 mg ER TAB (NF) PO SCH (09:56)
[2022-03-25] MEDS: Enoxaparin 40 MG/0.4 ML SYR SUBCUT SCH (12:43)
[2022-03-25] MEDS: Al Hydrox/Mg Hydrox/Simet LIQ 30 ML UDC PO PRN (21:23)
[2022-03-26 06:26] LABS: INR 1.05 (0.89-1.11)
[2022-03-26 06:33] VITALS: BP 140/90
[2022-03-26 07:01] LABS: Albumin 3.8 g/dL (3.2-5.2); Albumin/Globulin Ratio 1.5 (1-3); Calcium 8.9 mg/dL (8.6-10.3); Globulin 2.6 g/dL (2-4); Potassium 4.4 mmol/L (3.5-5.0); Total Bilirubin 0.2 mg/dL (0.2-1.0); Total Protein 6.4 g/dL (6.4-8.9); eGFR CKD-EPI 73.1 (>60)
[2022-03-26] MEDS: Mirabegron 50 mg ER TAB (NF) PO SCH (09:18)
[2022-03-26] MEDS: TERIFLUNOMIDE 14 MG PO SCH (09:19)
[2022-03-26] MEDS: Remdesivir 100 mg Vial 100 MG in NS 0.9% 250 ml 230 ML IV SCH (09:19)
[2022-03-26] MEDS: Enoxaparin 40 MG/0.4 ML SYR SUBCUT SCH (11:14)
== END 2022-03-26 14:30 | DRG 177 ==
LOC: ED 08:40 → SUATTDRO 11:39 → EDHOLD 11:39 → MED 15:53
PROVIDERS: ADMIT Student in an Organized Health Care Education/Training Program; ATTEND Internal Medicine

== ENCOUNTER 2022-12-02 07:17 | Observation (INO) ==
[~2022-12-02 07:17] MED LIST: Buffered Lidocaine 1% SYRIN 1 ml INTRADERM ONE; Lactated Ringers 1000 ml BAG 1,000 ML IV SCH
[2022-12-02] MEDS ORDERED: ceFAZolin 2 GM in NS PREMIX 2 GM/100 ML BAG IVPB ONE (08:09)
[2022-12-02] MEDS ORDERED: Buffered Lidocaine 1% SYRIN 1 ml ONE (08:09)
[2022-12-02] MEDS ORDERED: Bupivacaine 0.25% EPI 200,000 30 ML SDV ONE (09:12)
[2022-12-02] MEDS ORDERED: Rocuronium 50 mg VIAL 10 mg/ml 5 ml VIAL (50 mg) ONE (09:20)
[2022-12-02] MEDS ORDERED: Dexamethasone IV 4 MG/ML VIAL 1 ml VIAL ONE (09:21)
[2022-12-02] MEDS ORDERED: fentaNYL 250 mcg/5 ml 50 MCG/ML 5 ml VIAL (250 MCG) ONE (09:21)
[2022-12-02] MEDS ORDERED: Ondansetron 4 mg VIAL 2 MG/ML 2 ml VIAL ONE (09:21)
[2022-12-02] MEDS ORDERED: Midazolam 2 mg/2 ml VIAL 1 mg/ml 2 ml VIAL (2 mg) ONE (09:21)
[2022-12-02] MEDS ORDERED: Propofol 10 MG/ML 20 ML BTL ONE (09:21)
[2022-12-02] MEDS ORDERED: Lidocaine 2% PF 5 ML VIAL ONE (09:39)
[2022-12-02] MEDS ORDERED: Norepinephrine IV 1 MG/ML 4 ML VIAL ONE (10:01)
[2022-12-02] MEDS ORDERED: Ondansetron 4 mg VIAL 2 MG/ML 2 ml VIAL IV PRN ×2 (10:25→15:27)
[2022-12-02] MEDS ORDERED: fentaNYL 100 mcg/2 ml 50 MCG/ML VIAL IV PRN (10:25)
[2022-12-02] MEDS ORDERED: HYDROmorphone 1 MG/1 ML SYRINGE IV PRN (10:25)
[2022-12-02] MEDS ORDERED: Naloxone 0.4 mg VIAL 0.4 mg/ml 1 ml VIAL IV PRN (10:25)
[2022-12-02 16:10] LABS: Rapid COVID-19 Molecular Undetected (Undetected)
[2022-12-03] MEDS ORDERED: Mirabegron 50 mg ER TAB (NF) PO SCH (09:00)
[2022-12-03 14:24] VITALS: BP 100/62
== END 2022-12-03 15:00 ==
LOC: OR 07:17 → SSU 07:17
PROVIDERS: ADMIT Surgery; ATTEND Surgery